=== PATIENT | female | born 1975 | race Caucasian/White ===

== ENCOUNTER 2018-01-19 10:58 | Emergency (ER) | payer BC, MEDICAID ==
[~2018-01-19] VITALS: Ht 152.4 cm; Wt 86.0 kg
[2018-01-19] MEDS ORDERED: ACET-2708 PO (11:29)
[2018-01-19] MEDS ORDERED: IBUPROFEN 600MG TABLET PO ONE (13:00)
[2018-01-19 13:19] VITALS: BP 133/87
== END 2018-01-19 14:08 | disposition home or self-care (01) ==
LOC: ER 11:39
DX: S93.401A Sprain of unspecified ligament of right ankle, initial encounter (principal); Z90.49 Acquired absence of other specified parts of digestive tract; W10.8XXA Fall (on) (from) other stairs and steps, initial encounter; Y93.89 Activity, other specified; Y92.018 Other place in single-family (private) house as the place of occurrence of the external cause
CPT/HCPCS: 73610; 73630; 81025; 99284